=== PATIENT | male | born 2000 | race Caucasian/White ===

== ENCOUNTER 2021-08-28 19:46 | Emergency (ER) | payer OTHER ==
[~2021-08-28] VITALS: Ht 177.8 cm; Wt 70.5 kg
[~2021-08-28 19:46] MED LIST: AMOXICILLIN 8751 TAB PO
[2021-08-28 20:12] VITALS: TEMP 98.1
[2021-08-28 21:38] VITALS: BP 123/81; PULSE 93
== END 2021-08-28 21:38 | disposition home or self-care (01) ==
LOC: COL.ER 19:46
DX: R07.89 Other chest pain (principal)